=== PATIENT | male | born 1990 ===

== ENCOUNTER 2018-12-08 10:52 | Outpatient (CLI) | payer BC ==
[2018-12-08 12:23] LABS: Hematocrit 45.6 % (35.5-45.6); Hemoglobin 15.6 gm/dl (11.8-15.2); Mean Corpuscular HGB Conc 34 % (32-34); Mean Corpuscular Volume 92 fl (84-94); Platelet Count 219 K/mm3 (140-440); Red Blood Count 4.98 M/mm3 (3.65-5.03); Red Cell Distribution Width 13.5 % (13.2-15.2)
[2018-12-08 12:47] LABS: Alanine Aminotransferase 15 units/L (7-56); Albumin 4.4 g/dL (3.9-5); BUN/Creatinine Ratio 16; Blood Urea Nitrogen 13 mg/dL (9-20); Calcium 9.3 mg/dL (8.4-10.2); Chol/HDL Ratio 3.47 %; HDL Cholesterol 36 mg/dL (40-59); Hemolysis Index 66; LDL Cholesterol,Direct 87 mg/dL (50-130)
[2018-12-14 20:52] LABS: Vitamin D, 25-OH, D2 <4 ng/mL
== END 2018-12-08 10:53 | disposition home or self-care (01) ==
LOC: LAB 10:52
PROVIDERS: ATTEND Internal Medicine
DX: Z13.220 Encounter for screening for lipoid disorders (principal); Z13.1 Encounter for screening for diabetes mellitus; Z13.21 Encounter for screening for nutritional disorder
CPT/HCPCS: 36415; 80053; 80061; 82306; 82607; 83036; 84443; 85027; 87591; 87806

== ENCOUNTER 2018-12-14 11:21 | Outpatient (CLI) | payer BC ==
[2018-12-14 12:07] LABS: Bilirubin,Urine NEG (Negative); Blood,Urine NEG (Negative); Color,Urine Yellow (Yellow); Mucus,Urine FEW /HPF; Protein,Urine <15 mg/dL mg/dL (Negative); Urobilinogen,Urine < 2.0 mg/dL (<2.0); WBC,Urine < 1.0 /HPF (0.0-6.0)
== END 2018-12-14 11:22 | disposition home or self-care (01) ==
LOC: LAB 11:21
PROVIDERS: ATTEND Internal Medicine
DX: N39.0 Urinary tract infection, site not specified (principal)
CPT/HCPCS: 81001; 87086